=== PATIENT | female | born 1960 | race Asian ===

== ENCOUNTER 2018-11-30 20:50 | Emergency (ER) | payer MEDICAID ==
[~2018-11-30] VITALS: Ht 160 cm; Wt 59.0 kg
[2018-11-30] MEDS ORDERED: HYDROCODONE/ACETAMINOPHEN 5/325MG TABLET PO STA (22:30)
[2018-11-30 23:52] VITALS: BP 149/88
== END 2018-11-30 23:55 | disposition home or self-care (01) ==
LOC: ER 20:50
DX: S20.219A Contusion of unspecified front wall of thorax, initial encounter (principal); V43.52XA Car driver injured in collision with other type car in traffic accident, initial encounter; Y93.89 Activity, other specified; Y92.488 Other paved roadways as the place of occurrence of the external cause
CPT/HCPCS: 71045; 93005; 99283